=== PATIENT | female | born 1990 | race Caucasian/White ===

== ENCOUNTER 2018-10-08 15:27 | Emergency (ER) | payer BC ==
[2018-10-08] MEDS ORDERED: Sodium Chloride 0.9% 1,000 ML IV ONE (15:59)
--- NOTE | 2018-10-08 16:12 | EDM.PDOC ---
ED HPI GENERAL MEDICAL PROBLEM - General Chief Complaint: Abdominal Pain Stated Complaint: PAINS LEFT SIDE, Time Seen by Provider: 10/08/18 15:30 Source of Information: Reports: Patient History Limitations: Reports: No Limitations - History of Present Illness INITIAL COMMENTS - FREE TEXT/NARRATIVE: HISTORY AND PHYSICAL: History of present illness: Patient is a 28-year-old female who presents to the ED today with right lower quadrant abdominal pain 1 day. Patient states she is approximately 20 weeks gestation. She states her thus far has been uncomplicated. Patient describes the pain as sharp, dull, and constant. She denies any prior abdominal surgeries. She denies vaginal bleeding or change in discharge. 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 Patient denies fever, chills, chest pain, shortness of breath, or cough. Denies headache, neck stiff ness, change in vision, syncope, or near syncope. Denies nausea, vomiting, abdominal pain, diarrhea, constipation, or dysuria. Has not noted any blood in urine or stool. Patient has been eating and drinking appropriately. Review of systems: As per history of present illness and below otherwise all systems reviewed and negative. Past medical history: As per history of present illness and as reviewed below otherwise noncontributory. Surgical history: As per history of present illness and as reviewed below otherwise noncontributory. Social history: See social history for further information Family history: As per history of present illness and as reviewed below otherwise noncontributory. Physical exam: General: Patient is alert, oriented, and in no acute distress. She is sitting comfortably on the exam table. HEENT: Atraumatic, normocephalic, pupils equal and reactive bilaterally, negative for conjunctival pallor or scleral icterus, mucous membranes moist, TMs normal bilaterally, throat clear, neck supple, nontender, trachea midline. No drooling or trismus noted. No meningeal signs. No hot potato voice noted. Lungs: Clear to auscultation, breath sounds equal bilaterally, chest nontender. Heart: S1S2, regular rate and rhythm without overt murmur Abdomen: Moderate palpation of the right lower quadrant with guarding. Otherwise , obese, soft, nondistended. Negative for masses or hepatosplenomegaly. Negative for costovertebral tenderness. Pelvis: Stable nontender. Genitourinary: Deferred. Rectal: Deferred. Skin: Intact, warm, dry. No lesions or rashes noted. Extremities: Atraumatic, negative for cords or calf pain. Neurovascular unremarkable. Neuro: Awake, alert, oriented. Cranial nerves II through XII unremarkable. Cerebellum unremarkable. Motor and sensory unremarkable throughout. Exam nonfocal. Notes: Dr. Barragan, OBGYN and Dr. Schumacher, general surgery, were both consulted on patient. Both Dr. Barragan and Dr. Schumacher came and saw the patient. They are both agreeable to patient going home and following up with Dr. Barragan outpatient. Patient offered admission for observation, but declines and requests discharge home. Supportive care measures were reviewed and discussed. Voices understanding and is agreeable to plan of care. Denies any further questions or concerns at this time. Diagnostics: CBC, CMP, lipase, UA, urine hCG, Limited abdominal, and OBGYN US Therapeutics: Saline Prescription: None Impression: Abdominal pain, unspecified Plan: 1. You can use Tylenol as needed for pain and discomfort. This is safe to use in . 2. Follow-up with Dr. Barragan as discussed. 3. Return to ED as needed and as discussed. Definitive disposition and diagnosis as appropriate pending reevaluation and review of above. right lower back Pain Score (Numeric/FACES): 7 - Related Data Allergies Allergy/AdvReac Type Severity Reaction Status Date / Time acetaminophen [From Vicodin] Allergy Rash Verified 10/08/18 15:39 hydrocodone [From Vicodin] Allergy Rash Verified 10/08/18 15:39 Home Meds: Home Meds [id number]/Iron Fumarate/FA/DSS [ 19 Tablet] 1 tab PO DAILY 10/08/18 [ History] Past Medical History HEENT History: Reports: None Cardiovascular History: Reports: None Respiratory History: Reports: None Gastrointestinal History: Reports: None Genitourinary History: Reports: None ULTRASOUND TECHNOL History: Reports: Musculoskeletal History: Reports: None Neurological History: Reports: None Psychiatric History: Reports: None Endocrine/Metabolic History: Reports: None Hematologic History: Reports: None Immunologic History: Reports: None Oncologic (Cancer) History: Reports: None Dermatologic History: Reports: None - Past Surgical History Head Surgeries/Procedures: Reports: None HEENT Surgical History: Reports: Oral Surgery, Tonsillectomy Cardiovascular Surgical History: Reports: None Respiratory Surgical History: Reports: None GI Surgical History: Reports: None Female Surgical History: Reports: None Endocrine Surgical History: Reports: None Neurological Surgical History: Reports: None Musculoskeletal Surgical History: Reports: None Oncologic Surgical History: Reports: None Dermatological Surgical History: Reports: None Social & Family History - Family History Family Medical History: Noncontributory - Tobacco Use Smoking Status *Q: Current Some Day Smoker Years of Tobacco use: 10 Packs/Tins Daily: 0.1 - Caffeine Use Caffeine Use: Reports: Coffee - Recreational Drug Use Recreational Drug Use: No ED ROS GENERAL - Review of Systems Review Of Systems: ROS reveals no pertinent complaints other than HPI. ED EXAM, GI/ABD - Physical Exam Exam: See Below (see dictation) Course - Vital Signs Last Recorded V/S: Last Vital Signs Temp 35.7 C 10/08/18 15:37 Pulse 74 10/08/18 18:49 Resp 18 10/08/18 18:49 BP 106/62 10/08/18 18:49 Pulse Ox 97 10/08/18 18:49 - Orders/Labs/Meds Labs: Laboratory Tests 10/08/18 10/08/18 10/08/18 Range/Units 16:06 16:06 16:06 WBC 9.23 (4.0-11.0) K/uL RBC 3.99 L (4.30-5.90) M/uL Hgb 11.4 L (12.0-16.0) g/dL Hct 34.1 L (36.0-46.0) % MCV 85.5 (80.0-98.0) fL MCH 28.6 (27.0-32.0) pg MCHC 33.4 (31.0-37.0) g/dL RDW Std Deviation 44.4 (28.0-62.0) fl RDW Coeff of Blaire 14 (11.0-15.0) % Plt Count 246 (150-400) K/uL MPV 9.90 (7.40-12.00) fL Neut % (Auto) 73.2 (48.0-80.0) % Lymph % (Auto) 21.5 (16.0-40.0) % [place] % (Auto) 4.3 (0.0-15.0) % Eos % (Auto) 0.8 (0.0-7.0) % Baso % (Auto) 0.2 (0.0-1.5) % Neut # (Auto) 6.8 H (1.4-5.7) K/uL Lymph # (Auto) 2.0 (0.6-2.4) K/uL [place] # (Auto) 0.4 (0.0-0.8) K/uL Eos # (Auto) 0.1 (0.0-0.7) K/uL Baso # (Auto) 0.0 (0.0-0.1) K/uL Nucleated RBC % 0.0 /100WBC Nucleated RBCs # 0 K/uL Sodium 139 (136-145) mmol/L Potassium 3.6 (3.5-5.1) mmol/L Chloride 105 (98-107) mmol/L Carbon Dioxide 22.9 (21.0-32.0) mmol/L BUN 11 (7.0-18.0) mg/dL Creatinine 0.7 (0.6-1.0) mg/dL Est Cr Clr Drug Dosing 118.54 mL/min Estimated GFR (MDRD) > 60.0 ml/min Glucose 110 H (74-106) mg/dL Calcium 8.5 (8.5-10.1) mg/dL Total Bilirubin 0.2 (0.2-1.0) mg/dL AST 10 L (15-37) IU/L ALT 17 (14-63) IU/L Alkaline Phosphatase 37 L (46-116) U/L Total Protein 6.4 (6.4-8.2) g/dL Albumin 2.5 L (3.4-5.0) g/dL Globulin 3.9 (2.6-4.0) g/dL Albumin/Globulin Ratio 0.6 L (0.9-1.6) Lipase 99 (73-393) U/L HCG, Quant mIU/mL Urine Color Urine Appearance Urine pH (5.0-8.0) Ur Specific [place] (1.001-1.035) Urine Protein (NEGATIVE) mg/dL Urine Glucose (UA) (NEGATIVE) mg/dL Urine Ketones (NEGATIVE) mg/dL Urine Occult Blood (NEGATIVE) Urine Nitrite (NEGATIVE) Urine Bilirubin (NEGATIVE) Urine Urobilinogen (<2.0) EU/dL Ur Leukocyte Esterase (NEGATIVE) Urine HCG, Qual (NEGATIVE) 10/08/18 10/08/18 10/08/18 Range/Units 16:30 17:40 17:40 WBC (4.0-11.0) K/uL RBC (4.30-5.90) M/uL Hgb (12.0-16.0) g/dL Hct (36.0-46.0) % MCV (80.0-98.0) fL MCH (27.0-32.0) pg MCHC (31.0-37.0) g/dL RDW Std Deviation (28.0-62.0) fl RDW Coeff of Blaire (11.0-15.0) % Plt Count (150-400) K/uL MPV (7.40-12.00) fL Neut % (Auto) (48.0-80.0) % Lymph % (Auto) (16.0-40.0) % [place] % (Auto) (0.0-15.0) % Eos % (Auto) (0.0-7.0) % Baso % (Auto) (0.0-1.5) % Neut # (Auto) (1.4-5.7) K/uL Lymph # (Auto) (0.6-2.4) K/uL [place] # (Auto) (0.0-0.8) K/uL Eos # (Auto) (0.0-0.7) K/uL Baso # (Auto) (0.0-0.1) K/uL Nucleated RBC % /100WBC Nucleated RBCs # K/uL Sodium (136-145) mmol/L Potassium (3.5-5.1) mmol/L Chloride (98-107) mmol/L Carbon Dioxide (21.0-32.0) mmol/L BUN (7.0-18.0) mg/dL Creatinine (0.6-1.0) mg/dL Est Cr Clr Drug Dosing mL/min Estimated GFR (MDRD) ml/min Glucose (74-106) mg/dL Calcium (8.5-10.1) mg/dL Total Bilirubin (0.2-1.0) mg/dL AST (15-37) IU/L ALT (14-63) IU/L Alkaline Phosphatase (46-116) U/L Total Protein (6.4-8.2) g/dL Albumin (3.4-5.0) g/dL Globulin (2.6-4.0) g/dL Albumin/Globulin Ratio (0.9-1.6) Lipase (73-393) U/L HCG, Quant 6339.0 mIU/mL Urine Color YELLOW Urine Appearance CLEAR Urine pH 6.0 (5.0-8.0) Ur Specific [place] 1.015 (1.001-1.035) Urine Protein NEGATIVE (NEGATIVE) mg/dL Urine Glucose (UA) NEGATIVE (NEGATIVE) mg/dL Urine Ketones NEGATIVE (NEGATIVE) mg/dL Urine Occult Blood NEGATIVE (NEGATIVE) Urine Nitrite NEGATIVE (NEGATIVE) Urine Bilirubin NEGATIVE (NEGATIVE) Urine Urobilinogen 0.2 (<2.0) EU/dL Ur Leukocyte Esterase NEGATIVE (NEGATIVE) Urine HCG, Qual POSITIVE (NEGATIVE) Meds: Medications Discontinued Medications Generic Name Dose Route Start Last Admin Trade Name Freq PRN Reason Stop Dose Admin Sodium Chloride 1,000 mls @ 999 mls/hr 10/08/18 15:59 10/08/18 16:25 Normal Saline IV 10/08/18 16:59 999 mls/hr STAT ONE Administration Departure - Departure Time of Disposition: 19:48 Disposition: Home, Self-Care 01 Clinical Impression: Abdominal pain Qualifiers: Abdominal location: right lower quadrant Qualified Code(s): R10.31 - Right lower quadrant pain - Discharge Information Referrals: PCP,None [Primary Care Provider] - Forms: ED Department Discharge Additional Instructions: The following information is given to patients seen in the emergency department who are being discharged to home. This information is to outline your options for follow-up care. We provide all patients seen in our emergency department with a follow-up referral. The need for follow-up, as well as the timing and circumstances, are variable depending upon the specifics of your emergency department visit. If you don't have a primary care physician on staff, we will provide you with a referral. We always advise you to contact your personal physician following an emergency department visit to inform them of the circumstance of the visit and for follow-up with them and/or the need for any referrals to a consulting specialist. The emergency department will also refer you to a specialist when appropriate. This referral assures that you have the opportunity for follow-up care with a specialist. All of these measure are taken in an effort to provide you with optimal care, which includes your follow-up. Under all circumstances we always encourage you to contact your private physician who remains a resource for coordinating your care. When calling for follow-up care, please make the office aware that this follow-up is from your recent emergency room visit. If for any reason you are refused follow-up, please contact the [facility] Emergency Department at and asked to speak to the emergency department charge nurse. [facility] Primary [facility]/OBGYN [address] [place] [id number] [facility] [address] [place] [id number] 1. You can use Tylenol as needed for pain and discomfort. This is safe to use in . 2. Follow-up with Dr. Barragan as discussed. 3. Return to ED as needed and as discussed.
[2018-10-08 16:34] LABS: CHLORIDE,CL 105 mmol/L (98-107); SODIUM,NA 139 mmol/L (136-145)
--- NOTE | 2018-10-08 18:20 | US ---
INDICATION: Right lower quadrant abdominal pain. . FINDINGS: An ultrasound of the right lower quadrant shows a 2.0 cm heterogeneous oval shaped area which represents the patient`s area of tenderness. No other abnormalities identified in this region. IMPRESSION: 2.0 cm heterogeneous oval-shaped area in the right lower quadrant which represents the patient`s area of tenderness. This is a nonspecific finding and does not have the typical appearance of an appendix but could represent an inflamed dilated appendix or the right ovary. Consider noncontrast MRI for further evaluation. Dictated by Jaime Lmia MD @ 10/08/2018 6:17:14 PM Dictated by: Jaime Lima MD @ 10/08/2018 18:17:31 (Electronically Signed)
--- NOTE | 2018-10-08 18:33 | US ---
INDICATION: Right lower quadrant pain for 1 day TECHNIQUE: Ultrasound OB pelvis transabdominal. Real-time ramos-scale imaging of the fetus was performed. COMPARISON: None FINDINGS: Sonographic imaging demonstrates a single living intrauterine gestation. Fetus demonstrates a regular cardiac rate of 144 beats per minute. The placenta lies posterior without evidence of placenta previa or abruption. Amniotic fluid volume appears normal. The composite ultrasound gestational age is calculated at 20 weeks 0 days with an estimated sonographic due date of February 25, 2019. The estimated weight is 326 grams which lies at the 54 %. The following biometric measurements were obtained: Biparietal diameter: 4.6 cm/20 weeks 0 days Head circumference: 17.2 cm/19 weeks 6 days Abdominal circumference: 15.4 cm/20 weeks 5 days Femur length: 3.0 cm/19 weeks 3 days Left ovary was not identified. Within the right adnexa, there is a heterogeneous 1.2 x 2.0 x 1.4 cm focus. This area was tender during the ultrasound exam. This focus does not resemble normal ovarian tissue. Venous vascular flow surrounds this lesion. This area is not tubular in shape and does not appear to represent the appendix. A normal-appearing right ovary is not visualized. IMPRESSION: 1.Single viable intrauterine . 2. Heterogeneous focus in the right adnexa of uncertain etiology. This area was tender during the ultrasound exam. The area does not appear to represent normal ovarian tissue or appendix. A normal appearing right ovary was not visualized. Right ovarian torsion or dilated appendix cannot be excluded. Consider MRI pelvis for further evaluation. 3. These findings were discussed with Dr. Martinez at 6:28 p.m. on October 08, 2018. Dictated by Bisi Fuller MD @ Oct 08 2018 6:17PM Signed by Dr. Bisi Fuller @ Oct 08 2018 6:30PM
--- NOTE | 2018-10-08 19:54 | PCM.CONS ---
H&P History of Present Illness - General Date of Service: 10/08/18 Admit Problem/Dx: 28 y/o female who is 20 weeks presenting with RLQ pain and intermittent nausea. Denies fever, chills, vomiting or pain on ambulation. Has never had anything like this. No history of pelvic inflammatory disease or endometriosis. Source of Information: Patient History Limitations: Reports: No Limitations - History of Present Illness Onset of Symptoms: Reports: Gradual Duration of Symptoms: Reports: Day(s): Location: Reports: Abdomen (Primarily right lower quadrant) Quality: Reports: Pressure, Stabbing Severity: Moderate Improves with: Reports: None Worsens with: Reports: None Context: Reports: Sick Contact. Denies: Activity/Exercise, Lifting, Exertion Associated Symptoms: Reports: No Other Symptoms right lower back Pain Score (Numeric/FACES): 7 - Related Data Allergies/Adverse Reactions: Allergies Allergy/AdvReac Type Severity Reaction Status Date / Time acetaminophen [From Vicodin] Allergy Rash Verified 10/08/18 15:39 hydrocodone [From Vicodin] Allergy Rash Verified 10/08/18 15:39 Home Medications: Home Meds [id number]/Iron Fumarate/FA/DSS [ 19 Tablet] 1 tab PO DAILY 10/08/18 [ History] Past Medical History HEENT History: Reports: None Cardiovascular History: Reports: None Respiratory History: Reports: None Gastrointestinal History: Reports: None Genitourinary History: Reports: None 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: Musculoskeletal History: Reports: None Neurological History: Reports: None Psychiatric History: Reports: None Endocrine/Metabolic History: Reports: None Hematologic History: Reports: None Immunologic History: Reports: None Oncologic (Cancer) History: Reports: None Dermatologic History: Reports: None - Past Surgical History Head Surgeries/Procedures: Reports: None HEENT Surgical History: Reports: Oral Surgery, Tonsillectomy Cardiovascular Surgical History: Reports: None Respiratory Surgical History: Reports: None GI Surgical History: Reports: None Female Surgical History: Reports: None Endocrine Surgical History: Reports: None Neurological Surgical History: Reports: None Musculoskeletal Surgical History: Reports: None Oncologic Surgical History: Reports: None Dermatological Surgical History: Reports: None Social & Family History - Family History Family Medical History: Noncontributory - Tobacco Use Smoking Status *Q: Current Some Day Smoker Years of Tobacco use: 10 Packs/Tins Daily: 0.1 - Caffeine Use Caffeine Use: Reports: Coffee - Recreational Drug Use Recreational Drug Use: No H&P Review of Systems - Review of Systems: Review Of Systems: See Below General: Denies: Fever, Chills, Malaise, Weakness, Fatigue HEENT: Reports: No Symptoms Pulmonary: Denies: Shortness of Breath, Wheezing Cardiovascular: Denies: Chest Pain Gastrointestinal: Reports: Abdominal Pain, Decreased Appetite, Flatus, Nausea. Denies: Anorexia, Black Stool, Bloody Stool, Constipation, Diarrhea, Difficulty Swallowing, Distension, Hematemesis, Hematochezia, Melena, Vomiting Genitourinary: Denies: Dysuria, Frequency, Burning Musculoskeletal: Reports: No Symptoms Skin: Reports: No Symptoms Psychiatric: Reports: No Symptoms Neurological: Reports: No Symptoms Hematologic/Lymphatic: Reports: No Symptoms Immunologic: Reports: No Symptoms Exam - Exam Exam: See Below - Vital Signs Vital Signs: Last Vital Signs Temp 96.3 F 10/08/18 15:37 Pulse 74 10/08/18 18:49 Resp 18 10/08/18 18:49 BP 106/62 10/08/18 18:49 Pulse Ox 97 10/08/18 18:49 Weight: 254 lb - Exam General: Alert, Oriented, Cooperative HEENT: Conjunctiva Clear, EACs Clear, Pupils Equal, Pupils Reactive Neck: Supple, Trachea Midline Lungs: Clear to Auscultation, Normal Respiratory Effort Cardiovascular: Regular Rate, Regular Rhythm. No: Tachycardia GI/Abdominal Exam: Normal Bowel Sounds, Soft, Non-Tender. No: Distended, Guarding, Rigid, Rebound, Hernia, Mass (Female) Exam: Deferred Rectal (Female) Exam: Deferred Back Exam: Normal Inspection, Full Range of Motion Extremities: Normal Inspection, Normal Range of Motion, Non-Tender Peripheral Pulses: 4+: Posterior Tibial (L), Posterior Tibial (R), Dorsalis Pedis (L), Dorsalis Pedis (R) Skin: Warm, Dry, Intact Neuro Extensive - Mental Status: Alert, Oriented x3, Normal Mood/Affect, Normal Cognition Psychiatric: Alert, Normal Affect, Normal Mood - Patient Data Lab Results Last 24 hrs: Laboratory Results - last 24 hr 10/08/18 10/08/18 10/08/18 Range/Units 16:06 16:06 16:06 WBC 9.23 (4.0-11.0) K/uL RBC 3.99 L (4.30-5.90) M/uL Hgb 11.4 L (12.0-16.0) g/dL Hct 34.1 L (36.0-46.0) % MCV 85.5 (80.0-98.0) fL MCH 28.6 (27.0-32.0) pg MCHC 33.4 (31.0-37.0) g/dL RDW Std Deviation 44.4 (28.0-62.0) fl RDW Coeff of Blaire 14 (11.0-15.0) % Plt Count 246 (150-400) K/uL MPV 9.90 (7.40-12.00) fL Neut % (Auto) 73.2 (48.0-80.0) % Lymph % (Auto) 21.5 (16.0-40.0) % [place] % (Auto) 4.3 (0.0-15.0) % Eos % (Auto) 0.8 (0.0-7.0) % Baso % (Auto) 0.2 (0.0-1.5) % Neut # (Auto) 6.8 H (1.4-5.7) K/uL Lymph # (Auto) 2.0 (0.6-2.4) K/uL [place] # (Auto) 0.4 (0.0-0.8) K/uL Eos # (Auto) 0.1 (0.0-0.7) K/uL Baso # (Auto) 0.0 (0.0-0.1) K/uL Nucleated RBC % 0.0 /100WBC Nucleated RBCs # 0 K/uL Sodium 139 (136-145) mmol/L Potassium 3.6 (3.5-5.1) mmol/L Chloride 105 (98-107) mmol/L Carbon Dioxide 22.9 (21.0-32.0) mmol/L BUN 11 (7.0-18.0) mg/dL Creatinine 0.7 (0.6-1.0) mg/dL Est Cr Clr Drug Dosing 118.54 mL/min Estimated GFR (MDRD) > 60.0 ml/min Glucose 110 H (74-106) mg/dL Calcium 8.5 (8.5-10.1) mg/dL Total Bilirubin 0.2 (0.2-1.0) mg/dL AST 10 L (15-37) IU/L ALT 17 (14-63) IU/L Alkaline Phosphatase 37 L (46-116) U/L Total Protein 6.4 (6.4-8.2) g/dL Albumin 2.5 L (3.4-5.0) g/dL Globulin 3.9 (2.6-4.0) g/dL Albumin/Globulin Ratio 0.6 L (0.9-1.6) Lipase 99 (73-393) U/L HCG, Quant mIU/mL Urine Color Urine Appearance Urine pH (5.0-8.0) Ur Specific [place] (1.001-1.035) Urine Protein (NEGATIVE) mg/dL Urine Glucose (UA) (NEGATIVE) mg/dL Urine Ketones (NEGATIVE) mg/dL Urine Occult Blood (NEGATIVE) Urine Nitrite (NEGATIVE) Urine Bilirubin (NEGATIVE) Urine Urobilinogen (<2.0) EU/dL Ur Leukocyte Esterase (NEGATIVE) Urine HCG, Qual (NEGATIVE) 10/08/18 10/08/18 10/08/18 Range/Units 16:30 17:40 17:40 WBC (4.0-11.0) K/uL RBC (4.30-5.90) M/uL Hgb (12.0-16.0) g/dL Hct (36.0-46.0) % MCV (80.0-98.0) fL MCH (27.0-32.0) pg MCHC (31.0-37.0) g/dL RDW Std Deviation (28.0-62.0) fl RDW Coeff of Lba[place] (11.0-15.0) % Plt Count (150-400) K/uL MPV (7.40-12.00) fL Neut % (Auto) (48.0-80.0) % Lymph % (Auto) (16.0-40.0) % [place] % (Auto) (0.0-15.0) % Eos % (Auto) (0.0-7.0) % Baso % (Auto) (0.0-1.5) % Neut # (Auto) (1.4-5.7) K/uL Lymph # (Auto) (0.6-2.4) K/uL [place] # (Auto) (0.0-0.8) K/uL Eos # (Auto) (0.0-0.7) K/uL Baso # (Auto) (0.0-0.1) K/uL Nucleated RBC % /100WBC Nucleated RBCs # K/uL Sodium (136-145) mmol/L Potassium (3.5-5.1) mmol/L Chloride (98-107) mmol/L Carbon Dioxide (21.0-32.0) mmol/L BUN (7.0-18.0) mg/dL Creatinine (0.6-1.0) mg/dL Est Cr Clr Drug Dosing mL/min Estimated GFR (MDRD) ml/min Glucose (74-106) mg/dL Calcium (8.5-10.1) mg/dL Total Bilirubin (0.2-1.0) mg/dL AST (15-37) IU/L ALT (14-63) IU/L Alkaline Phosphatase (46-116) U/L Total Protein (6.4-8.2) g/dL Albumin (3.4-5.0) g/dL Globulin (2.6-4.0) g/dL Albumin/Globulin Ratio (0.9-1.6) Lipase (73-393) U/L HCG, Quant 6339.0 mIU/mL Urine Color YELLOW Urine Appearance CLEAR Urine pH 6.0 (5.0-8.0) Ur Specific [place] 1.015 (1.001-1.035) Urine Protein NEGATIVE (NEGATIVE) mg/dL Urine Glucose (UA) NEGATIVE (NEGATIVE) mg/dL Urine Ketones NEGATIVE (NEGATIVE) mg/dL Urine Occult Blood NEGATIVE (NEGATIVE) Urine Nitrite NEGATIVE (NEGATIVE) Urine Bilirubin NEGATIVE (NEGATIVE) Urine Urobilinogen 0.2 (<2.0) EU/dL Ur Leukocyte Esterase NEGATIVE (NEGATIVE) Urine HCG, Qual POSITIVE (NEGATIVE) Result Diagrams: 10/08/18 16:06 10/08/18 16:06 Consult PN Assessment/Plan Procedures: Procedures BLOOD TYPING SEROLOGIC ABO (09/12/18) BLOOD TYPING SEROLOGIC RH(D) (09/12/18) CHYLMD TRACH DNA AMP PROBE (07/04/18) COMPLETE CBC AUTOMATED (09/12/18) DRUG TEST PRSMV DIR OPT OBS (09/12/18) HEPATITIS B SURFACE AG IA (09/12/18) HEPATITIS C AB TEST (09/12/18) HIV-1 AG W/HIV-1 & HIV-2 AB (09/12/18) N.GONORRHOEAE DNA AMP PROB (07/04/18) RBC ANTIBODY SCREEN (09/12/18) ROUTINE VENIPUNCTURE (09/12/18) RUBELLA ANTIBODY (09/12/18) SYPHILIS TEST NON-TREP QUAL (09/12/18) URINALYSIS AUTO W/O SCOPE (09/12/18) URINE CULTURE/COLONY COUNT (09/12/18) (1) Intrauterine SNOMED Code(s): 09367450 Code(s): Z34.90 - ENCNTR FOR SUPRVSN OF NORMAL , UNSP, UNSP TRIMESTER Priority: Medium Current Visit: Yes Comment: Approximately 20 week gestation per patient (2) Abdominal pain SNOMED Code(s): 72846903 Code(s): R10.9 - UNSPECIFIED ABDOMINAL PAIN Priority: Medium Current Visit: Yes Qualifiers: Abdominal location: right lower quadrant Qualified Code(s): R10.31 - Right lower quadrant pain Problem List Initiated/Reviewed/Updated: Yes Plan: US report suggests multiple possibilities including inflamed appendix and ovarian torsion. Clinically patient does not have this type of acute picture. Other possibilities could include round ligament pain or inflamed appendices epiploicae. At 20 weeks gestation she is not, in my opinion, a surgical candidate for our facility. 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 If her symptoms worsen she will need to come back and be re-evaluated. Patient History Reviewed: Yes Admission H&P Reviewed: Yes Notified Requestor: Yes
== END 2018-10-08 20:05 | disposition home or self-care (01) ==
LOC: MW.ED 15:27
DX: O99.89 Other specified diseases and conditions complicating pregnancy, childbirth and the puerperium (principal); R10.31 Right lower quadrant pain; O99.332 Smoking (tobacco) complicating pregnancy, second trimester; F17.210 Nicotine dependence, cigarettes, uncomplicated; Z3A.20 20 weeks gestation of pregnancy; Z88.6 Allergy status to analgesic agent; Z79.899 Other long term (current) drug therapy
CPT/HCPCS: 36415; 76705; 76815; 80053; 81003; 81025; 83690; 84702; 85025; 96360; 99284; J7040

== ENCOUNTER 2019-02-26 01:16 | Inpatient (IN) | payer BC ==
[2019-02-26] MEDS ORDERED: Sodium Chloride 0.9% 2.5 ML Syringe FLUSH PRN (20:22)
[2019-02-26] MEDS ORDERED: Butorphanol 1 MG/ML SDV IVPUSH PRN (20:22)
[2019-02-26] MEDS ORDERED: Lidocaine 1% 50 ML MDV INJECT PRN (20:22)
[2019-02-26] MEDS ORDERED: Terbutaline 1 MG/ML SDV SUBCUT PRN (20:22)
[2019-02-26] MEDS ORDERED: Misoprostol 200 MCG Tab PO PRN (20:22)
[2019-02-26] MEDS ORDERED: Sodium Chloride 0.9% 10 ML Syringe FLUSH PRN (20:22)
[2019-02-26] MEDS ORDERED: Carboprost Tromethamine 250 MCG/1 ML Amp IM PRN (20:22)
[2019-02-26] MEDS ORDERED: Nalbuphine 10 MG/1 ML Vial IVPUSH PRN (20:22)
[2019-02-26] MEDS ORDERED: Ondansetron 4 MG/2 ML SDV IVPUSH PRN (20:22)
[2019-02-26] MEDS ORDERED: Tranexamic Acid 1,000 MG in Sodium Chloride 0.9% 100 ML IV PRN (20:22)
[2019-02-26] MEDS ORDERED: Methylergonovine 0.2 MG/1 ML Amp IM PRN (20:22)
[2019-02-26] MEDS ORDERED: Sodium Chloride 0.9% 10 ML SDV IV PRN (20:22)
[2019-02-26] MEDS ORDERED: Water For Irrigation,Sterile 1,000 ML Container IRR PRN (20:22)
[2019-02-26] MEDS ORDERED: Oxytocin/0.9 % Sodium Chloride 30 UNIT/500 ML BAG IV SCH ×2 (20:30)
[2019-02-26] MEDS ORDERED: Misoprostol 25 MCG (1/4 of 100 MCG) Tab VAG PRN (21:00)
[2019-02-26] MEDS: Misoprostol 25 MCG (1/4 of 100 MCG) Tab PO SCH (21:02)
[2019-02-26] MEDS: Lactated Ringers 1,000 ML IV SCH (23:08)
[2019-02-27] MEDS: Lactated Ringers 1,000 ML IV SCH (00:25)
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
[2019-02-27] MEDS ORDERED: ceFAZolin 1 GM Vial ONE (00:37)
[2019-02-27] MEDS ORDERED: Ondansetron 4 MG/2 ML SDV ONE (00:37)
[2019-02-27] MEDS ORDERED: Oxytocin 10 Units/1 ML SDV ONE (00:37)
[2019-02-27] MEDS ORDERED: Morphine PF 10 MG/10 ML SDV ONE (00:37)
[2019-02-27] MEDS ORDERED: Sodium Chloride 0.9% 40 ML ONE (00:37)
[2019-02-27] MEDS ORDERED: ePHEDrine 50 MG/ML SDV ONE (00:37)
[2019-02-27] MEDS ORDERED: Phenylephrine/Normal Saline 100 MCG/ML 10 ML Syringe ONE (00:55)
[2019-02-27] MEDS ORDERED: Misoprostol 25 MCG (1/4 of 100 MCG) Tab VAG PRN (01:00)
[2019-02-27] MEDS ORDERED: Octyl 2-Cyanoacrylate 1 Tube ONE (01:28)
[2019-02-27] MEDS ORDERED: Bisacodyl 10 MG Supp RECTAL PRN (01:31)
[2019-02-27] MEDS ORDERED: Lanolin 100% Cream 7 GM Tube TOP PRN (01:31)
[2019-02-27] MEDS ORDERED: Ondansetron 4 MG/2 ML SDV IVPUSH PRN (01:31)
[2019-02-27] MEDS ORDERED: diphenhydrAMINE 50 MG/ML SDV IVPUSH PRN ×2 (01:31→02:14)
[2019-02-27] MEDS ORDERED: Acetaminophen/oxyCODONE 325-5 MG Tab PO PRN ×2 (01:31)
--- NOTE | 2019-02-27 01:34 | PCM.OPNOTE ---
- General Post-Op/Procedure Note Date of Surgery/Procedure: 02/27/19 Operative Procedure(s): Primary C/section Pre Op Diagnosis: [id number]+ intolarance Post-Op Diagnosis: Same Anesthesia Technique: Spinal Primary Surgeon: Mike Barragan EBL in mLs: 650 Complications: None Condition: Good
[2019-02-27] MEDS ORDERED: Lactated Ringers 1,000 ML IV SCH (01:45)
[2019-02-27] MEDS: Ketorolac 30 MG/ML SDV IVPUSH SCH ×4 (02:09→20:31)
[2019-02-27] MEDS ORDERED: Naloxone 0.4 MG/ML Syringe IVPUSH PRN (02:14)
[2019-02-27] MEDS ORDERED: Nalbuphine 10 MG/1 ML Vial IVPUSH PRN (02:14)
--- NOTE | 2019-02-27 02:25 | PCM.POSTAN ---
POST ANESTHESIA ASSESSMENT - MENTAL STATUS Mental Status: Alert, Oriented - VITAL SIGNS Vital Signs: Last Vital Signs Temp 98.6 F 02/27/19 01:49 Pulse 85 02/27/19 02:19 Resp 20 02/27/19 02:19 BP 111/94 H 02/27/19 02:19 Pulse Ox 94 L 02/27/19 02:19 - RESPIRATORY Respiratory Status: Respiratory Rate WNL, Airway Patent, O2 Saturation Stable - CARDIOVASCULAR CV Status: Pulse Rate WNL, Blood Pressure Stable - GASTROINTESTINAL GI Status: No Symptoms - PAIN Pain Score: 1 - POST OP HYDRATION Hydration Status: Adequate & Stable
--- NOTE | 2019-02-27 06:28 | OR ---
SURGEON: Mike Barragan MD DATE OF PROCEDURE: PREOPERATIVE DIAGNOSES: Intrauterine at 39 weeks plus, intolerance. POSTOPERATIVE DIAGNOSES: Intrauterine at 39 weeks plus, intolerance. OPERATION PERFORMED: Primary low-transverse section. PRIMARY SURGEON: Mike Barragan MD. BLIND SLAT STAPLING MACHINE OPERATOR: Naz Stewart. ANESTHESIA: Spinal, Mr. Sam Kitchen. ESTIMATED BLOOD LOSS: 650. COMPLICATIONS: None. FINDING: Male fetus. A nuchal cord is noted and the also the cord is lying between the head and the uterine wall. Normal uterus, tubes, and ovary. INDICATION FOR SURGERY: This patient is 28. She is primigravida and she had 4 previous miscarriages; however, the patient is followed in this in our clinic primarily by me. She had no complication prenatally. Her GBS status was negative. She is admitted for elective induction. She had 1 dose of Cytotec, then the patient started having deceleration extending from 3 to 4 minutes and in obvious intolerance. She has only dilated 1 cm, so a decision is made to do a primary low-transverse section. PROCEDURE IN DETAIL: The patient was brought to the OR, properly identified. After adequate level of anesthesia, the patient prepped and draped in sterile fashion as usual with a Cantu catheter in the bladder. Low-transverse Pfannenstiel skin incision was done. Migue's fascia and rectus fascia were opened in direction of the incision. The 2 recti muscles were and peritoneal cavity was entered. Bladder flap was raised in the usual manner and low-transverse uterine incision was done and extended manually with the hand. Nuchal cord noted and then the fetus was delivered, cried immediately, and score later on reported as 8 and 9, was handed to the hvac service tech who was present at the time of delivery for resuscitation. The placenta delivered spontaneous complete and intact and repair of the lower uterine segment was done with 2-0 Vicryl continuous interlocking in 2 layers. Reperitonealization done with 3-0 Vicryl continuous and then the peritoneal cavity evacuated completely from all blood and blood clot and closed with 3-0 Vicryl continuous. Rectus fascia was closed with #1 PDS double strand continuous, the Migue's fascia with 3-0 Vicryl continuous and skin closed with 3-0 Vicryl on a Hansel needle in a subcuticular fashion. Instrument and sponge count was correct. The patient tolerated the procedure well, went to recovery room in stable and general condition. MONTRELL JACOB /[id number]
--- NOTE | 2019-02-27 08:24 | PCM48HPAN ---
Post Anesthesia Note - EVALUATION WITHIN 48HRS OF ANESTHETIC Vital Signs in Normal Range: Yes Patient Participated in Evaluation: Yes Respiratory Function Stable: Yes Airway Patent: Yes Cardiovascular Function Stable: Yes Hydration Status Stable: Yes Pain Control Satisfactory: Yes Nausea and Vomiting Control Satisfactory: Yes Mental Status Recovered: Yes Vital Signs: Last Vital Signs Temp 36.1 C 02/27/19 02:34 Pulse 81 02/27/19 06:30 Resp 17 02/27/19 06:30 BP 101/55 L 02/27/19 06:30 Pulse Ox 98 02/27/19 06:30 - COMMENTS/OBSERVATIONS Free Text/Narrative:: Patient stated that "That went better than I thought. People tell you how bad it 's going to be. I didn't think it was painful at all."
--- NOTE | 2019-02-27 15:02 | PCM.PNPP ---
- General Info Date of Service: 02/27/19 Functional Status: Reports: Pain Controlled - Review of Systems General: Reports: No Symptoms HEENT: Reports: No Symptoms Pulmonary: Reports: No Symptoms Cardiovascular: Reports: No Symptoms Gastrointestinal: Reports: No Symptoms Genitourinary: Reports: No Symptoms Musculoskeletal: Reports: No Symptoms Skin: Reports: No Symptoms Neurological: Reports: No Symptoms Psychiatric: Reports: No Symptoms - Patient Data Vital Signs - Most Recent: Last Vital Signs Temp 36.4 C 02/27/19 08:00 Pulse 70 02/27/19 14:25 Resp 18 02/27/19 14:25 BP 99/54 L 02/27/19 08:00 Pulse Ox 96 02/27/19 14:25 Weight - Most Recent: 123.831 kg I&O - Last 24 Hours: Intake & Output 02/27/19 02/27/19 02/27/19 06:59 14:59 22:59 Intake Total 2300 Output Total 640 Balance 1660 Lab Results - Last 24 Hours: Laboratory Results - last 24 hr 02/26/19 02/26/19 02/27/19 Range/Units 20:39 20:39 03:40 WBC 9.37 (4.0-11.0) K/uL RBC 4.45 (4.30-5.90) M/uL Hgb 12.4 (12.0-16.0) g/dL Hct 37.6 (36.0-46.0) % MCV 84.5 (80.0-98.0) fL MCH 27.9 (27.0-32.0) pg MCHC 33.0 (31.0-37.0) g/dL RDW Std Deviation 47.3 (28.0-62.0) fl RDW Coeff of Blaire 15 (11.0-15.0) % Plt Count 272 (150-400) K/uL MPV 10.60 (7.40-12.00) fL Nucleated RBC % 0.0 /100WBC Nucleated RBCs # 0 K/uL Blood Type O NEGATIVE Antibody Screen NEGATIVE Screen NEGATIVE (NEGATIVE) RhIG Candidate? YES Rhogam Indicated YES, BABY RH POS H Med Orders - Current: Current Medications Bisacodyl (Dulcolax) 10 mg RECTAL ONETIME PRN PRN Reason: Constipation Butorphanol Tartrate (Stadol) 1 mg IVPUSH Q1H PRN PRN Reason: Pain Carboprost Tromethamine (Hemabate Ds) 250 mcg IM ASDIRECTED PRN PRN Reason: Post Hemorrhage Diphenhydramine HCl (Benadryl) 25 mg IVPUSH Q6H PRN PRN Reason: Itching or Nausea Diphenhydramine HCl (Benadryl) 25 mg IVPUSH Q4H PRN PRN Reason: Itching Stop: 02/28/19 02:15 Docusate Sodium (Colace) 100 mg PO BID [facility] Emollient Ointment (Lansinoh Hpa) 0 gm TOP ASDIRECTED PRN PRN Reason: Sore Nipples Lactated Ringer's (Ringers, Lactated) 1,000 mls @ 150 mls/hr IV ASDIRECTED [facility] Last Admin: 02/27/19 00:25 Dose: 999 mls/hr Oxytocin/Sodium Chloride (Oxytocin 30 Unit/500 Ml-Ns) 30 unit in 500 mls @ 999 mls/hr IV TITRATE [facility] Oxytocin/Sodium Chloride (Oxytocin 30 Unit/500 Ml-Ns) 30 unit in 500 mls @ 2 mls/hr IV TITRATE [facility]; Protocol Tranexamic Acid 1,000 mg/ (Sodium Chloride) 110 mls @ 660 mls/hr IV ONETIME PRN PRN Reason: Bleeding Lactated Ringer's (Ringers, Lactated) 1,000 mls @ 125 mls/hr IV ASDIRECTED [facility] Last Admin: 02/27/19 06:22 Dose: 125 mls/hr Ibuprofen (Motrin) 800 mg PO Q8H PRN PRN Reason: mild pain or fever Ketorolac Tromethamine (Toradol) 30 mg IVPUSH Q6H [facility] Stop: 02/28/19 01:46 Last Admin: 02/27/19 14:38 Dose: 30 mg Lidocaine HCl (Xylocaine 1%) 50 ml INJECT ONETIME PRN PRN Reason: Laceration repair Methylergonovine Maleate (Methergine) 0.2 mg IM ASDIRECTED PRN PRN Reason: Post Hemorrhage Misoprostol (Cytotec) 200 mcg PO ONETIME PRN PRN Reason: Post Hemorrhage Misoprostol (Cytotec) 25 mcg VAG ONETIME PRN PRN Reason: Cervical Ripening Last Admin: 02/26/19 21:02 Dose: 25 mcg Misoprostol (Cytotec) 25 mcg VAG Q4H PRN PRN Reason: Cervical Ripening Misoprostol (Cytotec) 25 mcg PO Q4H [facility] Last Admin: 02/26/19 21:02 Dose: 25 mcg Nalbuphine HCl (Nubain) 10 mg IVPUSH Q1H PRN PRN Reason: Pain (severe 7-10) Nalbuphine HCl (Nubain) 5 mg IVPUSH Q3H PRN PRN Reason: Pruritis Stop: 02/28/19 02:15 Naloxone HCl (Narcan) 0.1 mg IVPUSH ONETIME PRN PRN Reason: Respiratory Depression Stop: 02/28/19 02:15 Ondansetron HCl (Zofran) 4 mg IVPUSH Q6H PRN PRN Reason: Nausea/Vomiting Ondansetron HCl (Zofran) 4 mg IVPUSH Q4H PRN PRN Reason: Nausea/Vomiting Oxycodone/Acetaminophen (Percocet 325-5 Mg) 1 tab PO Q4H PRN PRN Reason: Pain (moderate 4-6) Oxycodone/Acetaminophen (Percocet 325-5 Mg) 2 tab PO Q4H PRN PRN Reason: Pain (moderate 4-6) Sodium Chloride (Saline Flush) 10 ml FLUSH ASDIRECTED PRN PRN Reason: Keep Vein Open Sodium Chloride (Saline Flush) 2.5 ml FLUSH ASDIRECTED PRN PRN Reason: Keep Vein Open Sodium Chloride (Normal Saline) 10 ml IV ASDIRECTED PRN PRN Reason: IV Use Sterile Water (Sterile Water For Irrigation) 1,000 ml IRR ASDIRECTED PRN PRN Reason: delivery Terbutaline Sulfate (Brethine) 0.25 mg SUBCUT ASDIRECTED PRN PRN Reason: Tacysystole Discontinued Medications Cefazolin Sodium (Ancef) Confirm Administered Dose 1 gm .ROUTE .STK-MED ONE Stop: 02/27/19 00:38 Ephedrine Sulfate (Ephedrine Sulfate) Confirm Administered Dose 50 mg .ROUTE .STK-MED ONE Stop: 02/27/19 00:38 Sodium Chloride (Normal Saline) Confirm Administered Dose 40 mls @ as directed .ROUTE .STK-MED ONE Stop: 02/27/19 00:38 Morphine Sulfate (Duramorph Pf) Confirm Administered Dose 10 mg .ROUTE .STK-MED ONE Stop: 02/27/19 00:38 Octyl Cyanoacrylate (Dermabond Advance) Confirm Administered Dose 1 applic .ROUTE .STK-MED ONE Stop: 02/27/19 01:29 Ondansetron HCl (Zofran) Confirm Administered Dose 4 mg .ROUTE .STK-MED ONE Stop: 02/27/19 00:38 Oxytocin (Pitocin) Confirm Administered Dose 30 unit .ROUTE .STK-MED ONE Stop: 02/27/19 00:38 Phenylephrine HCl (Phenylephrine In Ns 100 Mcg/Ml) Confirm Administered Dose 1 mg .ROUTE .STK-MED ONE Stop: 02/27/19 00:56 - Infant Interaction Disposition, : in Room with Family Infant Interaction: Holding Infant Infant Feeding: Attempted ; Nursed Fair/Poor Support Person: - Recovery Exam Fundal Tone: Firm Fundal Level: At Umbilicus Fundal Placement: Midline Lochia Amount: Scant Lochia Color: Rubra/Red Perineum Description: Intact, Minimal Bruising/Swelling Episiotomy/Laceration: None Bladder Status: Indwelling Catheter in Place Urinary Elimination: Indwelling Catheter - Exam General: Alert, Oriented HEENT: Pupils Equal Neck: Supple Lungs: Clear to Auscultation, Normal Respiratory Effort Cardiovascular: Regular Rate, Regular Rhythm GI/Abdominal Exam: Normal Bowel Sounds, Soft, Non-Tender, No Organomegaly, No Distention, No Abnormal Bruit, No Mass, Pelvis Stable Extremities: Normal Inspection, Normal Range of Motion, Non-Tender, No Pedal Edema, Normal Capillary Refill Skin: Warm, Dry, Intact Wound/Incisions: Healing Well Neurological: No New Focal Deficit Psy/Mental Status: Alert, Normal Affect, Normal Mood - Problem List Review Problem List Initiated/Reviewed/Updated: Yes - My Orders Last 24 Hours: My Active Orders 02/26/19 20:22 Bedrest Bathroom Privileges [RC] ASDIRECTED Oxygen Therapy [RC] ASDIRECTED Up ad Zehra [RC] ASDIRECTED Butorphanol [Stadol] 1 mg IVPUSH Q1H PRN Carboprost Tromethamine [Hemabate DS] 250 mcg IM ASDIRECTED PRN Lidocaine 1% [Xylocaine 1%] 50 ml INJECT ONETIME PRN Methylergonovine [Methergine] 0.2 mg IM ASDIRECTED PRN Nalbuphine [Nubain] 10 mg IVPUSH Q1H PRN Ondansetron [Zofran] 4 mg IVPUSH Q6H PRN Sodium Chloride 0.9% [Normal Saline] 10 ml IV ASDIRECTED PRN Sodium Chloride 0.9% [Saline Flush] 10 ml FLUSH ASDIRECTED PRN Sodium Chloride 0.9% [Saline Flush] 2.5 ml FLUSH ASDIRECTED PRN Terbutaline [Brethine] 0.25 mg SUBCUT ASDIRECTED PRN Tranexamic Acid [Cyklokapron] 1,000 mg Sodium Chloride 0.9% [Normal Saline] 100 ml IV ONETIME Water For Irrigation,Sterile [Sterile Water for Irrigation] 1,000 ml IRR ASDIRECTED PRN miSOPROStol [Cytotec] 200 mcg PO ONETIME PRN Scalp Electrode [WOMSER] Per Unit Routine Peripheral IV Insertion Adult [OM.PC] Routine Resuscitation Status Routine 02/26/19 20:30 Lactated Ringers [Ringers, Lactated] 1,000 ml IV ASDIRECTED Oxytocin/0.9 % Sodium Chloride [Oxytocin 30 Unit/500 ML-NS] 30 unit in 500 ml IV TITRATE Oxytocin/0.9 % Sodium Chloride [Oxytocin 30 Unit/500 ML-NS] 30 unit in 500 ml IV TITRATE Medication Administration Instruction [OM.PC] Q3H 02/26/19 21:00 miSOPROStol [Cytotec] 25 mcg PO Q4H miSOPROStol [Cytotec] 25 mcg VAG ONETIME PRN 02/27/19 01:00 miSOPROStol [Cytotec] 25 mcg VAG Q4H PRN 02/27/19 01:31 Patient Status [ADT] Routine Ambulate [RC] PER UNIT ROUTINE Communication Order [RC] PER UNIT ROUTINE May Shower [RC] ASDIRECTED RT Incentive Spirometry [RC] Q2HWA Acetaminophen/oxyCODONE [Percocet 325-5 MG] 1 tab PO Q4H PRN Acetaminophen/oxyCODONE [Percocet 325-5 MG] 2 tab PO Q4H PRN Bisacodyl [Dulcolax] 10 mg RECTAL ONETIME PRN Lanolin [Lansinoh HPA] See Dose Instructions TOP ASDIRECTED PRN Ondansetron [Zofran] 4 mg IVPUSH Q4H PRN diphenhydrAMINE [Benadryl] 25 mg IVPUSH Q6H PRN Assess Lochia [WOMSER] Per Unit Routine Assess Uterine Involution [WOMSER] Per Unit Routine Breast Pump [WOMSER] Per Unit Routine Peripheral IV Discontinue [OM.PC] Routine Sequential Compression Device [OM.PC] Per Unit Routine 02/27/19 01:32 Antiembolic Devices [RC] PER UNIT ROUTINE 02/27/19 01:45 Ketorolac [Toradol] 30 mg IVPUSH Q6H Lactated Ringers [Ringers, Lactated] 1,000 ml IV ASDIRECTED 02/27/19 03:40 SCREEN [BBK] Routine RH IMMUNE GLOBULIN [BBK] Routine RHOGAM, [RHIG WORKUP, ] [BBK] Routine 02/27/19 09:00 Docusate Sodium [Colace] 100 mg PO BID 02/27/19 Breakfast Regular Diet [DIET] 02/28/19 05:11 HEMOGLOBIN/HEMATOCRIT,HH [HEME] Timed 02/28/19 07:30 Ibuprofen [Motrin] 800 mg PO Q8H PRN - Plan Plan:: Pt admitted for elective induction. Pt. show tarik of intolerance after Cytotec. we willdo primary c/Section.
[2019-02-27] MEDS: Docusate Sodium 100 MG Cap PO SCH (20:31)
[2019-02-28] MEDS: Ketorolac 30 MG/ML SDV IVPUSH SCH (02:45)
[2019-02-28] MEDS ORDERED: Ibuprofen 800 MG Tab PO PRN (07:30)
--- NOTE | 2019-02-28 09:06 | PCM.PNPP ---
- General Info Date of Service: 02/28/19 Functional Status: Reports: Pain Controlled - Review of Systems General: Reports: No Symptoms HEENT: Reports: No Symptoms Pulmonary: Reports: No Symptoms Cardiovascular: Reports: No Symptoms Gastrointestinal: Reports: No Symptoms Genitourinary: Reports: No Symptoms Musculoskeletal: Reports: No Symptoms Skin: Reports: No Symptoms Neurological: Reports: No Symptoms Psychiatric: Reports: No Symptoms - General Info Date of Service: 02/28/19 - Patient Data Vital Signs - Most Recent: Last Vital Signs Temp 36.2 C 02/28/19 07:30 Pulse 75 02/28/19 07:30 Resp 18 02/28/19 07:30 BP 111/62 02/28/19 07:30 Pulse Ox 97 02/28/19 07:30 Weight - Most Recent: 123.831 kg I&O - Last 24 Hours: Intake & Output 02/27/19 02/28/19 02/28/19 22:59 06:59 14:59 Intake Total 800 2 Output Total 225 550 Balance 575 -548 Lab Results - Last 24 Hours: Laboratory Results - last 24 hr 02/27/19 02/28/19 Range/Units 03:40 05:39 Hgb 10.7 L (12.0-16.0) g/dL Hct 33.5 L (36.0-46.0) % Screen NEGATIVE (NEGATIVE) RhIG Candidate? YES Rhogam Indicated YES, BABY RH POS H Med Orders - Current: Current Medications Bisacodyl (Dulcolax) 10 mg RECTAL ONETIME PRN PRN Reason: Constipation Butorphanol Tartrate (Stadol) 1 mg IVPUSH Q1H PRN PRN Reason: Pain Carboprost Tromethamine (Hemabate Ds) 250 mcg IM ASDIRECTED PRN PRN Reason: Post Hemorrhage Diphenhydramine HCl (Benadryl) 25 mg IVPUSH Q6H PRN PRN Reason: Itching or Nausea Docusate Sodium (Colace) 100 mg PO BID COUNT INCLUDES THE [facility] Last Admin: 02/27/19 20:31 Dose: 100 mg Emollient Ointment (Lansinoh Hpa) 0 gm TOP ASDIRECTED PRN PRN Reason: Sore Nipples Lactated Ringer's (Ringers, Lactated) 1,000 mls @ 150 mls/hr IV ASDIRECTED COUNT INCLUDES THE [facility] Last Admin: 02/27/19 00:25 Dose: 999 mls/hr Oxytocin/Sodium Chloride (Oxytocin 30 Unit/500 Ml-Ns) 30 unit in 500 mls @ 999 mls/hr IV TITRATE ELLIOT Oxytocin/Sodium Chloride (Oxytocin 30 Unit/500 Ml-Ns) 30 unit in 500 mls @ 2 mls/hr IV TITRATE ELLIOT; Protocol Tranexamic Acid 1,000 mg/ (Sodium Chloride) 110 mls @ 660 mls/hr IV ONETIME PRN PRN Reason: Bleeding Lactated Ringer's (Ringers, Lactated) 1,000 mls @ 125 mls/hr IV ASDIRECTED COUNT INCLUDES THE [facility] Last Admin: 02/27/19 06:22 Dose: 125 mls/hr Ibuprofen (Motrin) 800 mg PO Q8H PRN PRN Reason: mild pain or fever Lidocaine HCl (Xylocaine 1%) 50 ml INJECT ONETIME PRN PRN Reason: Laceration repair Methylergonovine Maleate (Methergine) 0.2 mg IM ASDIRECTED PRN PRN Reason: Post Hemorrhage Misoprostol (Cytotec) 200 mcg PO ONETIME PRN PRN Reason: Post Hemorrhage Misoprostol (Cytotec) 25 mcg VAG ONETIME PRN PRN Reason: Cervical Ripening Last Admin: 02/26/19 21:02 Dose: 25 mcg Misoprostol (Cytotec) 25 mcg VAG Q4H PRN PRN Reason: Cervical Ripening Misoprostol (Cytotec) 25 mcg PO Q4H COUNT INCLUDES THE [facility] Last Admin: 02/26/19 21:02 Dose: 25 mcg Nalbuphine HCl (Nubain) 10 mg IVPUSH Q1H PRN PRN Reason: Pain (severe 7-10) Ondansetron HCl (Zofran) 4 mg IVPUSH Q6H PRN PRN Reason: Nausea/Vomiting Ondansetron HCl (Zofran) 4 mg IVPUSH Q4H PRN PRN Reason: Nausea/Vomiting Oxycodone/Acetaminophen (Percocet 325-5 Mg) 1 tab PO Q4H PRN PRN Reason: Pain (moderate 4-6) Last Admin: 02/28/19 02:59 Dose: 1 tab Oxycodone/Acetaminophen (Percocet 325-5 Mg) 2 tab PO Q4H PRN PRN Reason: Pain (moderate 4-6) Sodium Chloride (Saline Flush) 10 ml FLUSH ASDIRECTED PRN PRN Reason: Keep Vein Open Sodium Chloride (Saline Flush) 2.5 ml FLUSH ASDIRECTED PRN PRN Reason: Keep Vein Open Sodium Chloride (Normal Saline) 10 ml IV ASDIRECTED PRN PRN Reason: IV Use Sterile Water (Sterile Water For Irrigation) 1,000 ml IRR ASDIRECTED PRN PRN Reason: delivery Terbutaline Sulfate (Brethine) 0.25 mg SUBCUT ASDIRECTED PRN PRN Reason: Tacysystole Discontinued Medications Cefazolin Sodium (Ancef) Confirm Administered Dose 1 gm .ROUTE .STK-MED ONE Stop: 02/27/19 00:38 Diphenhydramine HCl (Benadryl) 25 mg IVPUSH Q4H PRN PRN Reason: Itching Stop: 02/28/19 02:15 Ephedrine Sulfate (Ephedrine Sulfate) Confirm Administered Dose 50 mg .ROUTE .STK-MED ONE Stop: 02/27/19 00:38 Sodium Chloride (Normal Saline) Confirm Administered Dose 40 mls @ as directed .ROUTE .STK-MED ONE Stop: 02/27/19 00:38 Ketorolac Tromethamine (Toradol) 30 mg IVPUSH Q6H ELLIOT Stop: 02/28/19 01:46 Last Admin: 02/28/19 02:45 Dose: 30 mg Morphine Sulfate (Duramorph Pf) Confirm Administered Dose 10 mg .ROUTE .STK-MED ONE Stop: 02/27/19 00:38 Nalbuphine HCl (Nubain) 5 mg IVPUSH Q3H PRN PRN Reason: Pruritis Stop: 02/28/19 02:15 Naloxone HCl (Narcan) 0.1 mg IVPUSH ONETIME PRN PRN Reason: Respiratory Depression Stop: 02/28/19 02:15 Octyl Cyanoacrylate (Dermabond Advance) Confirm Administered Dose 1 applic .ROUTE .STK-MED ONE Stop: 02/27/19 01:29 Ondansetron HCl (Zofran) Confirm Administered Dose 4 mg .ROUTE .STK-MED ONE Stop: 02/27/19 00:38 Oxytocin (Pitocin) Confirm Administered Dose 30 unit .ROUTE .STK-MED ONE Stop: 02/27/19 00:38 Phenylephrine HCl (Phenylephrine In Ns 100 Mcg/Ml) Confirm Administered Dose 1 mg .ROUTE .STK-MED ONE Stop: 02/27/19 00:56 - Interaction Infant Disposition, : [place] in Room with Family Interaction: Holding Feeding: Attempted ; Nursed Fair/Poor Support Person: - Recovery Exam Fundal Tone: Firm Fundal Level: 1 Fingerbreadths Below Umbilicus Fundal Placement: Midline Lochia Amount: Scant Lochia Color: Rubra/Red Perineum Description: Intact, Minimal Bruising/Swelling Episiotomy/Laceration: None Bladder Status: Voiding Urinary Elimination: Voided - Exam General: Alert, Oriented HEENT: Pupils Equal Neck: Supple Lungs: Clear to Auscultation, Normal Respiratory Effort Cardiovascular: Regular Rate, Regular Rhythm GI/Abdominal Exam: Normal Bowel Sounds, Soft, Non-Tender, No Organomegaly, No Distention, No Abnormal Bruit, No Mass, Pelvis Stable Extremities: Normal Inspection, Normal Range of Motion, Non-Tender, No Pedal Edema, Normal Capillary Refill Skin: Warm, Dry, Intact Wound/Incisions: Healing Well Neurological: No New Focal Deficit Psy/Mental Status: Alert, Normal Affect, Normal Mood - Problem List Review Problem List Initiated/Reviewed/Updated: Yes - My Orders Last 24 Hours: My Active Orders 02/27/19 09:00 Docusate Sodium [Colace] 100 mg PO BID 02/28/19 07:30 Ibuprofen [Motrin] 800 mg PO Q8H PRN - Plan Plan:: Pt admitted for elective induction. Pt. show tarik of intolerance after Cytotec. we willdo primary c/Section.
[2019-02-28] MEDS: Misoprostol 25 MCG (1/4 of 100 MCG) Tab PO SCH (12:48)
[2019-02-28] MEDS: Docusate Sodium 100 MG Cap PO SCH (12:49)
== END 2019-02-28 12:46 | disposition home or self-care (01) | DRG 540 ==
LOC: MW.OB 01:16 → OBSVTOIN 02-27 01:16 → MW.OB 02-27 03:25
PROVIDERS: ADMIT Obstetrics & Gynecology; ATTEND Obstetrics & Gynecology
PROC: 10D00Z1 Extraction of Products of Conception, Low, Open Approach (ICD-10-PCS; principal; 2019-02-27)
DX: O76 Abnormality in fetal heart rate and rhythm complicating labor and delivery (principal); Z3A.39 39 weeks gestation of pregnancy; Z37.0 Single live birth
CPT/HCPCS: 36415; 59025; 85014; 85018; 85027; 85460; 86850; 86900; 86901; A9270-GY; J0690; J1885; J2270; J2370; J2405; J2590; J2792; J7120